=== PATIENT | male | born 1965 | race Caucasian/White ===

== ENCOUNTER 2018-06-05 12:43 | Day surgery (SDC) | payer OTHER ==
[2018-05-18 10:02] VITALS: BMI 36.3
[~2018-06-05 12:43] MED LIST: DEXAMETHASONE SOD PHOSPHATE 4 MG/1 ML VIAL ONE; GELATIN, ABSORBABLE 100 EACH SPONGE TP ONE; KETAMINE HCL 200 MG/20 ML VIAL ONE; LIDOCAINE HCL 2% JELLY (5 ML/TUBE) ONE; LIDOCAINE HCL/PF 2% SDV 5ML VIAL ONE; MIDAZOLAM HCL 2 MG/2 ML SINGLE DOSE VIAL ONE; ONDANSETRON 4 MG/2 ML VIAL ONE; PHENYLEPHRINE HCL 10 MG/1 ML SINGLE DOSE VIAL ONE; PROPOFOL 20 ML ONE; ROCURONIUM BROMIDE 50 MG/5 ML VIAL ONE; SODIUM CHLORIDE 0.9% P/F 10 ML VIAL IJ ONE; SUCCINYLCHOLINE CHLORIDE 200 MG/10 ML VIAL ONE; THROMBIN (BOVINE) 5,000 UNIT VIAL TP ONE; ceFAZolin SODIUM 1 GM VIAL ONE; fentaNYL CITRATE 250 MCG/5 ML VIAL ONE; oxyCODONE HCL 5 MG TABLET PO ONE
[2018-06-05] MEDS ORDERED: PROMETHAZINE HCL 25 MG/1 ML VIAL IVPUSH PRN (12:45)
[2018-06-05] MEDS ORDERED: SODIUM CHLORIDE 0.45% 1,000 ML IV SCH (12:45)
[2018-06-05] MEDS ORDERED: morphine SULFATE 4 MG/ML VIAL IVPUSH PRN (12:45)
[2018-06-05] MEDS ORDERED: ONDANSETRON 4 MG/2 ML VIAL IVPUSH PRN (12:45)
[2018-06-05] MEDS ORDERED: ACETAMINOPHEN INJECTION 100 ML IVPB ONE (14:03)
--- NOTE | 2018-06-05 14:27 | OP ---
DATE OF OPERATION: 06/05/2018 PREOPERATIVE DIAGNOSIS: 1. Right upper extremity cervical radiculopathy. 2. Herniated disc, cervical spine, at C5-C6 and C6-C7. POSTOPERATIVE DIAGNOSIS: 1. Right upper extremity cervical radiculopathy. 2. Herniated disc, cervical spine, at C5-C6 and C6-C7. PROCEDURE PERFORMED: 1. Anterior cervical 2-level discectomy at C5-C6 and C6-C7. 2. Anterior cervical 2-level arthrodesis at C5-C6 and C6-C7. 3. Insertion of interbody spacer anteriorly at 2 levels, C5-C6 and C6-C7 (LDR LEE-C / titanium coated 6-mm implants x 2, 4 locking plates). 4. Application of segmental anterior cervical spinal instrumentation. SURGEON: Dev Qureshi MD REAR ADMIRAL: MARCOS Johnson ANESTHESIA: General. INDICATIONS: The patient is a 52-year-old male with several months of persistent and severer right-sided neck pain with radicular pain down the right arm with significant motor weakness in the right triceps. The pain has been refractory to management with multiple oral medications including oral steroids and pain medication. The patient remains with significant and severe unrelenting pain as well as significant motor weakness. MRI exam showed a large right-sided disc herniation at C6-C7 and significant chronic disc osteophyte complex lateralizing to the right with significant spinal stenosis and right lateral recess stenosis at C5-C6. Given the duration of the patients symptoms, his failure to improve with nonoperative treatment as well as the pronounced motor weakness that is not improving, he is indicated for surgical decompression. Risks, benefits, and alternatives of the surgery were discussed in detail with the patient and family. Informed consent was obtained. DESCRIPTION OF PROCEDURE: The patient was brought into the operating room via stretcher, and transferred onto the OR table in the supine position. General endotracheal anesthesia was administered by the anesthesiologist. The patient was placed with leads for monitoring using SSEPs, MAPs, and vocal cord monitoring. Baselines were then taken, and the patient was then positioned with the arms tucked to the side as well as a bolster placed in between the scapula for gentle extension of the neck. A fluoroscopic C-arm was placed to allow for intraoperative lateral fluoroscopic radiographs. There was noted to be significant difficulty visualizing C6-C7 due to the patients body habitus. I did place 2 Kerlixs at the wrist to allow for traction with spot films. The neck was then prepped and draped in the usual sterile fashion. Prophylactic IV antibiotics were administered, and a time-out was performed. An appropriate incision was then made at the right side of the neck anteriorly spanning the appropriate levels. Dissection was carried down to the level of the platysmal layer. The platysmal layer was then split, and blunt dissection was carried down medial to the carotid sheath exposing the bony spine. A localizing film was then taken. The appropriate levels were then exposed. A deep retractor was then placed. A complete discectomy of the C6-C7 level was performed to the uncovertebral joints bilaterally and down to the posterior aspect of the disc. The retractor was then moved proximally, and a complete discectomy was performed of the C5-C6 level as well down to the posterior disc. The microscope was then brought in. The PLL was then excised across the posterior aspect of the disc space at C5-C6. The retractor was then moved down to the C6-C7 level, and likewise the PLL was removed along with the right-sided extruded disc fragments. Extended compression of the spinal cord and lateral recesses was noted bilaterally. The wounds were then copiously irrigated. The sizing implant was then used at C6-C7 showing a 6-mm implant that showed excellent fit. The implant was then malletted into place under visualization with fluoroscopy using traction on the arms. The 2 locking plates were then engaged. Of note, I did fill the cage with DBM as well as morselized local autograft. The retractor was then placed at the C5-C6 level, and likewise, a 6-mm implant was shown to show excellent fit. It was again filled with DBM and morselized local autograft. It was malletted into place, and the 2 locking plates were engaged. There was noted to be locking of the locking mechanism on both levels. Fluoroscopy showed excellent position of the implants. The wounds were then copiously irrigated. The platysma layer was closed with 3-0 Vicryl suture. The deep dermal tissue was approximated with 2-0 Vicryl suture, and the skin was closed with 4-0 Biosyn suture. Dermabond was placed, and Steri-Strips were placed. The patient tolerated the procedure well without complications. Harshashabbir May RPA-C, was necessary throughout the case for properly assistance in retraction of the neural elements instrumentation and discectomy of the cervical spine. This could not have been done without a skilled neurosurgical physician assistant. DEV QURESHI M.D. [id number] MTDD
[2018-06-05] MEDS ORDERED: ACETAMINOPHEN 1000 MG/100 ML VIAL (NON FORMULARY) IVPB ONE (15:00)
[2018-06-05 15:45] VITALS: TEMP 98.6
[2018-06-05] MEDS: CEFAZOLIN 1 GM/D5W 1 GRAM/50 ML BAG IVPB SCH (17:45)
[2018-06-05] MEDS ORDERED: DOCUSATE SODIUM 100 MG CAPSULE (FP) PO SCH (22:00)
[2018-06-05] MEDS ORDERED: VENLAFAXINE HCL 75 MG E.R. CAPSULES (FP) PO SCH (22:00)
[2018-06-06] MEDS: CEFAZOLIN 1 GM/D5W 1 GRAM/50 ML BAG IVPB SCH (02:51)
[2018-06-06 05:45] VITALS: BP 143/68; PULSE 97
--- NOTE | 2018-06-06 08:28 | PN ---
Progress Note (short form) - Note Progress Note: doing well, neck sore no other complaints wound dry motor intact b/l UE/LE POD#1 s/p acdf -d/c today -f/u two weeks -ok to shower - will leave steri strips on -will call if severe pain, fevers, drainage, redness
== END 2018-06-06 09:15 | disposition home or self-care (01) ==
LOC: FM/S 12:43 → FASU 12:43
PROVIDERS: ATTEND Orthopaedic Surgery Orthopaedic Surgery of the Spine
PROC: 0RG10A0 Fusion of Cervical Vertebral Joint with Interbody Fusion Device, Anterior Approach, Anterior Column, Open Approach (ICD-10-PCS; 2018-06-05)
PROC: 0RG10K0 Fusion of Cervical Vertebral Joint with Nonautologous Tissue Substitute, Anterior Approach, Anterior Column, Open Approach (ICD-10-PCS; 2018-06-05)
PROC: 0RB30ZZ Excision of Cervical Vertebral Disc, Open Approach (ICD-10-PCS; principal; 2018-06-05 08:00)
DX: M50.222 Other cervical disc displacement at C5-C6 level (principal); M54.12 Radiculopathy, cervical region
CPT/HCPCS: 22551; 22552; 22845; 22853; C1889; 72050-TC-FY; 76001-TC-FY; 94760; J0131